=== PATIENT | male | born 1995 | race African-American/Black ===

== ENCOUNTER 2017-06-06 16:34 | Emergency (ER) | payer SELFPAY ==
[~2017-06-06] VITALS: Ht 190.5 cm; Wt 80.0 kg
[~2017-06-06 16:34] MED LIST: KETO10 PO; NORC7.5T PO
[2017-06-06 16:47] VITALS: BP 151/75; PULSE 75; RESP 16; TEMP 98.2; O2SAT 99
== END 2017-06-06 18:29 | disposition left against medical advice (07) ==
LOC: NED 16:34
DX: R10.9 Unspecified abdominal pain (principal); Z53.21 Procedure and treatment not carried out due to patient leaving prior to being seen by health care provider
CPT/HCPCS: 99281